=== PATIENT | female | born 1965 ===

== ENCOUNTER 2017-10-30 14:10 | Emergency (ER) | payer OTHER ==
[2017-10-30 14:44] VITALS: RESP 18; TEMP 97.8
[2017-10-30 16:37] LABS: BASO # 0.1 K/uL (0.0-0.2); EOS # 0.2 K/uL (0.0-0.7); EOS % 3.5 % (0.0-4.0); HEMOGLOBIN 14.3 g/dL (12.0-16.0); LYMPH # 3.2 K/uL (1.0-4.3); LYMPH % 49.4 % (20.0-40.0); MEAN CORPUSCULAR HEMOGLOBIN 30.7 pg (27.0-31.0); MEAN CORPUSCULAR HGB CONC 34.5 g/dL (33.0-37.0); MEAN PLATELET VOLUME 9.4 fl (7.2-11.7); MONO # 0.5 K/uL (0.0-0.8); MONO % 7.2 % (0.0-10.0); NEUT # 2.5 K/uL (1.8-7.0); NEUT % 38.9 % (50.0-75.0); NRBC % 0.1 % (0.0-0.0); RBC 4.65 Mil/uL (3.80-5.20); RED CELL DISTRIBUTION WIDTH 12.9 % (11.5-14.5); WHITE BLOOD COUNT 6.4 K/uL (4.8-10.8)
[2017-10-30 17:13] LABS: URINE CLARITY Clear (Clear); URINE COLOR STRAW (YELLOW); URINE GLUCOSE (UA) NEGATIVE (Normal)
[2017-10-30 17:14] LABS: PH,URINE 6.0. (5.0-8.0); URINE BILIRUBIN NEGATIVE (NEGATIVE); URINE BLOOD NEGATIVE (NEGATIVE); URINE PROTEIN NEGATIVE (NEGATIVE); URINE UROBILINOGEN 0.2 mg/dL (0.2-1.0)
[2017-10-30 17:15] LABS: SQUAMOUS EPITHIAL 1 /hpf (0-5)
[2017-10-30 17:20] LABS: ALB/GLOB RATIO 1.2 (1.0-2.1); ALBUMIN 4.4 g/dL (3.5-5.0); CALCIUM 9.6 mg/dL (8.4-10.2); GFR AFRICAN-AMERICAN > 60; GFR NON-AFRICAN AMERICAN > 60; LIPASE 153 U/L (23-300)
[2017-10-30 17:30] LABS: URINE LEUKOCYTE ESTERASE NEGATIVE Leu/uL (Negative)
[2017-10-30 17:32] LABS: B-TYPE NATRIURETIC PEPTIDE 14.8 pg/ml (0-900)
--- NOTE | 2017-10-30 17:32 | ED PDOC ---
HPI: Abdomen Time Seen by Provider: 10/30/17 15:04 Chief Complaint (Nursing): Abdominal Pain Chief Complaint (Provider): Upper Abdominal Pain History Per: Patient History/Exam Limitations: no limitations Onset/Duration Of Symptoms: Other (x1 week) Current Symptoms Are (Timing): Still Present Location Of Pain/Discomfort: Other (upper abdomen) Associated Symptoms: denies: Nausea, Vomiting, Diarrhea, Chest Pain Additional Complaint(s): 52 year old female presented to ED with complaints of worsening upper abdominal pain on both sides for 1 week. Patient reports that pain is worse after eating and obtains a sour taste after she eats. She indicates that the pain radiates to the back but not to the chest. Patient states that since Thursday she has had bilateral ankle swelling without pain but denies history of DVT and PE. She also denies CP, SOB, palpitations, cough, hemoptysis, and recent prolonged immobilization and history of CHF. PCP: none provided Past Medical History Reviewed: Historical Data, Nursing Documentation, Vital Signs Vital Signs: Last Vital Signs Temp 97.8 F 10/30/17 14:39 Pulse 68 10/30/17 20:14 Resp 18 10/30/17 20:14 BP 141/81 10/30/17 20:14 Pulse Ox 99 10/30/17 20:14 - Medical History PMH: HTN, Hypercholesterolemia, Hyperlipidemia - Surgical History Surgical History: No Surg Hx - Family History Family History: States: Unknown Family Hx - Home Medications Home Medications: Ambulatory Orders Medication Instructions Recorded Famotidine [Pepcid] 20 mg PO DAILY PRN #14 tab 10/30/17 - Allergies Allergies/Adverse Reactions: Allergies Allergy/AdvReac Type Severity Reaction Status Date / Time No Known Allergies Allergy Verified 10/30/17 14:44 Review of Systems ROS Statement: Except As Marked, All Systems Reviewed And Found Negative Cardiovascular: Negative for: Chest Pain, Palpitations Respiratory: Negative for: Cough, Shortness of Breath, Hemoptysis Gastrointestinal: Positive for: Abdominal Pain (on both sides radiating to back) . Negative for: Nausea, Vomiting, Diarrhea Physical Exam - Reviewed Nursing Documentation Reviewed: Yes Vital Signs Reviewed: Yes - Physical Exam Appears: Positive for: Non-toxic, No Acute Distress Head Exam: Positive for: ATRAUMATIC, NORMAL INSPECTION, NORMOCEPHALIC Skin: Positive for: Normal Color, Warm, Dry Eye Exam: Positive for: Normal appearance ENT: Positive for: Normal ENT Inspection Neck: Positive for: Normal, Painless ROM Cardiovascular/Chest: Positive for: Regular Rate, Rhythm. Negative for: Murmur Respiratory: Positive for: Normal Breath Sounds. Negative for: Wheezing, Respiratory Distress Gastrointestinal/Abdominal: Positive for: Tenderness (minimal epigastric tenderness) Back: Positive for: Normal Inspection. Negative for: L CVA Tenderness, R CVA Tenderness Extremity: Positive for: Deformity (chronic deformity to left foot), Swelling ( minimal swelling to bilateral ankles). Negative for: Tenderness, Other ( erythema) - Laboratory Results Result Diagrams: 10/30/17 16:30 10/30/17 16:30 - ECG O2 Sat by Pulse Oximetry: 98 (RA) Pulse Ox Interpretation: Normal Medical Decision Making Medical Decision Making: Initial Impression: abdominal pain Initial Plan: ECG B-type natriuretic peptide CMP Lipase Troponin D Dimer Famotidine 40mg IV Urinalysis US abdomen US duplex lower extremities US abd: Mobile cholelithiasis. US duplex b/l lower extremities vein: negative for DVT On re-evaluation, pt. reports good relief of pain. Informed of results. Advised to f/u with PMD for further evaluation. Scribe Attestation: Documented by Ceasar Martinez acting as a scribe for Van Davies Provider Scribe Attestation: All medical record entries made by the Scribe were at my direction and personally dictated by me. I have reviewed the chart and agree that the record accurately reflects my personal performance of the history, physical exam, medical decision making, and the department course for this patient. I have also personally directed, reviewed, and agree with the discharge instructions and disposition. Disposition - Clinical Impression Clinical Impression: Leg swelling, Dyspepsia - Patient ED Disposition Is Patient to be Admitted: No - Disposition Referrals: [facility] [Outside] [facility] [Outside] Disposition: Routine/Home Disposition Time: 19:30 Condition: STABLE Additional Instructions: Follow up with PMD for further evaluation Return to ED immediately if symptoms worsen Prescriptions: Famotidine [Pepcid] 20 mg PO DAILY PRN #14 tab PRN Reason: Dyspepsia Instructions: Dyspepsia (DC) Forms: [employer] (Irish) Print Language: FAROESE
[2017-10-30 17:44] LABS: BLOOD UREA NITROGEN 22 mg/dl (7-17)
[2017-10-30 17:45] LABS: ALT/SGPT 40 U/L (9-52); AST/SGOT 32 U/L (14-36)
--- NOTE | 2017-10-30 18:22 | US ---
HISTORY: b/l upper abdominal pain COMPARISON: None. TECHNIQUE: Sonographic evaluation of the abdomen. FINDINGS: LIVER: Measures cm. Normal echogenicity of the liver parenchyma. No mass. No intrahepatic bile duct dilatation. GALLBLADDER: Mobile cholelithiasis. COMMON BILE DUCT: Measures mm. No stones. No dilatation. PANCREAS: Unremarkable as visualized. No mass. No ductal dilatation. RIGHT KIDNEY: Measures cm. Normal echogenicity. No calculus, mass, or hydronephrosis. LEFT KIDNEY: Measures cm. Normal echogenicity. No calculus, mass, or hydronephrosis. SPLEEN: Normal in size and contour. No mass. AORTA: No aneurysmal dilatation. IVC: Unremarkable. OTHER FINDINGS: None. IMPRESSION: Mobile cholelithiasis.
--- NOTE | 2017-10-30 18:22 | US ---
PROCEDURE: Bilateral lower extremity venous duplex Doppler. HISTORY: swelling to ankles COMPARISON: None available. TECHNIQUE: Bilateral common femoral, superficial femoral, popliteal and posterior tibial veins were evaluated. Flow was assessed with color Doppler, compressibility, assessment of phasic flow and augmentation response. FINDINGS: COMMON FEMORAL VEIN: Right CFV: Unremarkable. Left CFV: Unremarkable. SUPERFICIAL FEMORAL VEIN: Right SFV: Unremarkable. Left SFV: Unremarkable. POPLITEAL VEIN: Right Popliteal: Unremarkable. Left Popliteal: Unremarkable. POSTERIOR TIBIAL VEIN: Right PTV: Unremarkable. Left PTV: Unremarkable. OTHER FINDINGS: None. IMPRESSION: No evidence of deep venous thrombosis.
[2017-10-30 20:15] VITALS: BP 141/81; PULSE 68
[2017-10-30 20:54] VITALS: O2SAT 98
--- NOTE | 2017-10-31 11:29 | CARD ---
APPROVED REPORT EKG Measurement Heart [id number] <Conclusion> Sinus bradycardia Incomplete right bundle branch block Left anterior fascicular block Possible Inferior infarct, age undetermined Abnormal ECG
== END 2017-10-30 20:17 | disposition home or self-care (01) ==
LOC: H.ER 14:10
DX: R10.13 Epigastric pain (principal); R60.0 Localized edema; E78.00 Pure hypercholesterolemia, unspecified; I10 Essential (primary) hypertension; K80.20 Calculus of gallbladder without cholecystitis without obstruction